=== PATIENT | male | born 1965 | race Caucasian/White ===

== ENCOUNTER 2018-05-11 05:20 | Day surgery (SDC) | payer MEDICAID ==
[2018-05-04 14:41] LABS: BASOPHILS # (AUTO) 0.1 X10'3 (0-0.2); EOSINOPHILS # (AUTO) 0.1 X10'3 (0-0.9); EOSINOPHILS % (AUTO) 2.4 % (0-6); LYMPHOCYTES # (AUTO) 1.7 X10'3 (1.1-4.8); LYMPHOCYTES % (AUTO) 33.7 % (21-51); MEAN CORPUSCULAR HEMOGLOBIN 34.9 PG (27.0-31.0); MEAN CORPUSCULAR HGB CONC 34.9 % (33.0-36.5); MEAN CORPUSCULAR VOLUME 99.9 FL (78-98); MEAN PLATELET VOLUME 7.2 FL (7.4-10.4); MONOCYTES # (AUTO) 0.5 X10'3 (0-0.9); MONOCYTES % (AUTO) 9.8 % (2-12); NEUTROPHILS # (AUTO) 2.7 X10'3 (1.8-7.7); NEUTROPHILS % (AUTO) 52.1 % (42-75); PRE OP HEMATOCRIT 47.2 % (42.0-52.0); PRE OP HEMOGLOBIN 16.5 g/dL (14.0-17.9); PRE OP PLATELET COUNT 181 X10'3 (140-440); RED BLOOD COUNT 4.73 X10'6 (4.70-6.10); RED CELL DISTRIBUTION WIDTH 13.1 % (11.5-14.5)
[2018-05-04 14:58] LABS: ALBUMIN 4.2 G/DL (3.4-5.0); ALBUMIN/GLOBULIN RATIO 1.3 (1.1-1.5); ALKALINE PHOSPHATASE 82 IU/L (46-116); BLOOD UREA NITROGEN 11 MG/DL (7-18); BUN/CREATININE RATIO 14.5 (5.4-32.0); CALCIUM 8.9 MG/DL (8.5-10.1); CHLORIDE 103 MMOL/L (99-107); CREATININE 0.76 MG/DL (0.60-1.10); PRE OP ALT 52 U/L (30-65); PRE OP ANION GAP 11 (8-16); PRE OP AST 47 U/L (10-37); PRE OP BILIRUB, TOTAL 0.6 MG/DL (0.0-1.0); PRE OP GLUCOSE 105 MG/DL (70-104); PRE OP POTASSIUM 3.8 MMOL/L (3.4-5.1); PRE OP SODIUM 140 MMOL/L (135-145); TOTAL CARBON DIOXIDE 26.4 MMOL/L (24-32); TOTAL PROTEIN 7.5 G/DL (6.4-8.2); eGFR > 90 ML/MIN
[2018-05-11] VITALS (10 sets, daily range): BP systolic 107–134; BP diastolic 67–83
[~2018-05-11] VITALS: Ht 172.7 cm; Wt 80.7 kg
[~2018-05-11 05:20] MED LIST: CITA-278 PO; LOSA50TA3 PO; ringers solution, lacted 1,000 ML IV SCH
[2018-05-11] MEDS ORDERED: famotidine 20mg tablet PO ONE (05:30)
[2018-05-11] MEDS ORDERED: Cefazolin 2GM/50ML dext iso,osmotic IVPB IV ONE (06:23)
[2018-05-11] MEDS ORDERED: ondansetron/PF 4mg/2ml inj ONE (07:12)
[2018-05-11] MEDS ORDERED: ROPIVAcaine 0.5% (5mg/ml) 30ml vial ONE (07:12)
[2018-05-11] MEDS ORDERED: sevoflurane 250ml liquid IH ONE (07:12)
[2018-05-11] MEDS ORDERED: cloNIDine hcl/PF 100mcg/ml inj ONE (07:14)
[2018-05-11] MEDS ORDERED: fentaNYL/PF 50MCG/1 ML 2ML syringe ONE ×2 (07:16→07:38)
[2018-05-11] MEDS ORDERED: midazolam 2 mg/2 ml injection ONE ×2 (07:16→07:17)
[2018-05-11] MEDS ORDERED: propofol inj 20 ML IV ONE (07:40)
[2018-05-11] MEDS ORDERED: LIDOcaine 2% (20mg/ml) 5ml vial ONE (07:40)
[2018-05-11] MEDS ORDERED: dexamethasone sod phosphate 4mg/ml inj. ONE (07:40)
[2018-05-11] MEDS ORDERED: ondansetron/PF 4mg/2ml inj IV PRN (08:15)
[2018-05-11] MEDS ORDERED: ringers solution, lacted 1,000 ML IV SCH (08:15)
[2018-05-11] MEDS ORDERED: meperidine/PF 25mg/ml syringe IV PRN ×3 (08:15)
[2018-05-11] MEDS ORDERED: morphine 4 MG/ML inj SYRINge IV PRN ×2 (08:15)
[2018-05-11] MEDS ORDERED: proCHLORperazine 10 MG/2 ml inj IV PRN (08:15)
[2018-05-11] MEDS ORDERED: meperidine/PF 50mg/ml syringe ONE (08:38)
[2018-05-11] MEDS ORDERED: HYDROcodone/acetaminophen 10/325mg tab PO PRN (08:45)
[2018-05-11] MEDS ORDERED: CITA20TA19 PO (09:09)
[2018-05-11] MEDS ORDERED: LOSA50TA3 PO (09:11)
== END 2018-05-11 10:16 | disposition home or self-care (01) ==
LOC: PAS 05:20
PROVIDERS: ATTEND Orthopaedic Surgery
DX: M65.811 Other synovitis and tenosynovitis, right shoulder (principal); M19.011 Primary osteoarthritis, right shoulder; M75.51 Bursitis of right shoulder; M25.711 Osteophyte, right shoulder; M75.81 Other shoulder lesions, right shoulder; G47.33 Obstructive sleep apnea (adult) (pediatric); I10 Essential (primary) hypertension; F41.8 Other specified anxiety disorders; Z87.891 Personal history of nicotine dependence; Z72.89 Other problems related to lifestyle; Z79.1 Long term (current) use of non-steroidal anti-inflammatories (NSAID); Z79.891 Long term (current) use of opiate analgesic; Z88.8 Allergy status to other drugs, medicaments and biological substances; Z79.899 Other long term (current) drug therapy; Z98.890 Other specified postprocedural states
CPT/HCPCS: 29824; 29826; 36415; 80053; 85025; 93005; A4565; A6449; J0690; J0735; J1100; J2001; J2175; J2250; J2405; J2704; J2795; J3010; J7030; J7120; A7000